=== PATIENT | male | born 1970 | race Hispanic/Latino ===

== ENCOUNTER 2016-07-22 18:35 | Emergency (ER) | payer OTHER ==
[~2016-07-22] VITALS: Ht 180.3 cm; Wt 119.3 kg
[2016-07-22] MEDS ORDERED: METFORMIN HCL1000 M1 PO (19:07)
[2016-07-22] MEDS ORDERED: ATORVASTATIN CA10 M1 PO (19:08)
[2016-07-22] MEDS ORDERED: LISINOPRIL2.5 M1 PO (19:08)
[2016-07-22] MEDS ORDERED: PIOGLITAZONE HC45 M1 PO (19:08)
[2016-07-22] MEDS ORDERED: GLIMEPIRIDE4 M1 PO (19:08)
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
[2016-07-22 19:37] LABS: ABSOLUTE BASOPHIL COUNT 0 /CUMM (0.0-0.2); ABSOLUTE EOSINOPHIL COUNT 0.3 /CUMM (0.0-0.7); ABSOLUTE GRANULOCYTE CT 4.3 /CUMM (1.4-6.5); ABSOLUTE LYMPH COUNT 1.5 /CUMM (1.2-3.4); ABSOLUTE MONOCYTE COUNT 0.3 /CUMM (0.10-0.60); BASOPHIL % 0.4 % (0.0-2.0); GRANULOCYTE % 68.1 % (42.2-75.2); HEMATOCRIT 39.4 % (42-52); MEAN CORPUSCULAR HGB 28.8 PG (27.0-31.0); MEAN CORPUSCULAR HGB CONC 33.8 G/DL (33.0-37.0); MEAN CORPUSCULAR VOLUME 85.2 FL (80.0-94.0); MEAN PLATELET VOLUME 8.6 FL (7.4-10.4); PLATELET COUNT 224 /CUMM (130-400); RBC DISTRIBUTION WIDTH 13.4 % (11.5-14.5); RED BLOOD CELL CT 4.63 /CUMM (4.70-6.10); WHITE BLOOD CELL COUNT 6.3 /CUMM (4.8-10.8)
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
[2016-07-22 20:37] VITALS: BP 153/82
[2016-07-22] MEDS ORDERED: DICLOFENAC SODI75 M2 PO (20:56)
[2016-07-22] MEDS ORDERED: CYCLOBENZAPRINE10 M1 PO (20:56)
[2016-07-22] MEDS ORDERED: PERCOCET 5-3251 EACH PO (20:56)
== END 2016-07-22 21:17 ==
LOC: ERH 18:35
PROVIDERS: Physician Assistant
DX: M62.830 Muscle spasm of back (principal); K57.90 Diverticulosis of intestine, part unspecified, without perforation or abscess without bleeding; R91.1 Solitary pulmonary nodule; E11.65 Type 2 diabetes mellitus with hyperglycemia
CPT/HCPCS: 74176; 81001; 93005; 93010; 96372; 96374; 96375; J1885; J3360

== ENCOUNTER 2016-11-28 08:17 | Emergency (ER) | payer OTHER ==
[~2016-11-28] VITALS: Ht 180.3 cm; Wt 117.9 kg
[~2016-11-28 08:17] MED LIST: ATORVASTATIN CA10 M1 PO; CYCLOBENZAPRINE10 M1 PO; DICLOFENAC SODI75 M2 PO; GLIMEPIRIDE4 M1 PO; LISINOPRIL2.5 M1 PO; METFORMIN HCL1000 M1 PO; PERCOCET 5-3251 EACH PO; PIOGLITAZONE HC45 M1 PO
--- NOTE | 2016-11-28 08:22 | ED INFLUENZA/URI COMPLAINT ---
History of Present Illness General Chief Complaint: Upper Respiratory Sx/Fever Stated Complaint: URI Source: patient, old records Exam Limitations: no limitations Vital Signs & Intake/Output Vital Signs & Intake/Output Vital Signs Date Time Temp Pulse Resp B/P B/P Pulse O2 O2 Flow FiO2 Mean Ox Delivery Rate 11/28 0845 98.0 88 20 130/80 98 Room Air 11/28 0915 99 11/28 0900 98 Room Air 11/28 0821 97.7 87 20 130/83 98 Room Air Allergies Coded Allergies: shellfish derived (Severe, TONGUE SWELLING AND HIVES 07/22/16) Penicillins (UNKNWON 07/22/16) Reconcile Medications Albuterol Sulfate (Proair Hfa) 90 MCG HFA.AER.AD 2 PUF INH Q4-6 PRN PRN bronchitis Atorvastatin Calcium 10 MG TABLET 1 TAB PO DAILY HPL (Reported) Azithromycin 250 MG TABLET 1 DP PO AD bronchitis 2 the first day followed by 1 for days 2-5 Codeine Phosphate/Guaifenesi (Guaifen-Codeine 100-10 MG/5 Ml) 10 MG-100 MG/5 ML LIQUID 10 ML PO Q6HR PRN COUGH Cyclobenzaprine HCl 10 MG TABLET 1 TAB PO TID PRN MUSCLE RELAXANT MAY CAUSE DROWSINESS Diclofenac Sodium 75 MG TABLET.DR 1 TAB PO BID PRN pain/inflammation Glimepiride 4 MG TABLET 1 TAB PO DAILY DM (Reported) Lisinopril 2.5 MG TABLET 1 TAB PO DAILY HTN (Reported) Metformin HCl 1,000 MG TABLET 1 TAB PO BID DM (Reported) Oxycodone HCl/Acetaminophen (Percocet 5-325 MG Tablet) 5 MG-325 MG TABLET 1 TAB PO Q6H PRN PAIN Pioglitazone HCl 45 MG TABLET 1 TAB PO DAILY DM (Reported) Triage Note: PT C/O 3 DAY HX PRODUCTIVE COUGH, FEVER, CHILLS AND BODYACHES. STATES TAKING NYQUIL AND DAYQUIL WITH NO RELIEF Triage Nurses Notes Reviewed? yes Onset: Gradual Duration: day(s): (5), constant Timing: recent history Severity: mild, moderate Severity Numbers: 6 Prior Episodes/Possible Cause: no prior episodes No Modifying Factors: none Associated Symptoms: cough, fever/chills, CONGESTION HPI: 46-year-old male with history of diabetes, hypertension nonsmoker presents to ER for evaluation complaining of 5 day history of a productive cough yellow sputum associated with congestion, fever chills as high as 102. Is been taking NyQuil, DayQuil without relief his last dose was 3 days ago. No sick contacts. He denies any.pain nausea vomiting diarrhea no urinary symptoms. Reports chest pain with coughing no pain at rest. No modifying factors or associated symptoms otherwise (BEAN COOPER) Past History Travel History Traveled to [place] past 21 day No Medical History Any Pertinent Medical History? see below for history Neurological: NONE EENT: NONE Cardiovascular: BORDERLINE HTN Respiratory: NONE Gastrointestinal: NONE Hepatic: NONE Renal: NONE Musculoskeletal: NONE Psychiatric: NONE Endocrine: diabetes Blood Disorders: NONE Cancer(s): NONE RN CAMP/Reproductive: NONE Surgical History Surgical History: non-contributory Psychosocial History What is your primary language Khmer Tobacco Use: Never used ETOH Use: occasional use Illicit Drug Use: denies illicit drug use Family History Hx Contributory? No (BEAN COOPER) Review of Systems Review of Systems Constitutional: Reports: see HPI. All Other Systems: Reviewed and Negative Comments Review of systems: See HPI, All other systems negative. Constitutional, chills fever, malaise HEENT: no sore throat congestion, no ear pain Cardiovascular: No chest pain , no palpitation , no orthopnea Skin: no rashes, no change in skin Respiratory: No dyspnea cough no sputum GI: No nausea no vomiting, no diarrhea, : No dysuria Muscle skeletal: No joint pain, no back pain, no neck pain, Neurologic: no headache Psych: No stress Heme/endocrine: No bruising Immunology: No lymphadenopathy (BEAN COOPER) Physical Exam Physical Exam General Appearance: well developed/nourished, no apparent distress, alert, awake Ears, Nose, Throat: normal ENT inspection, moist mucous membrane Comments: Well-developed well-nourished patient in no apparent distress. Head/Face: Atraumatic, no maxillary/frontal sinus tenderness, no facial swelling Eyes: PERRL, EOMI, no conjunctival injection. No nystagmus Ear:External auditory canal and Tympanic membranes clear, no erythema, no FB. Nose: atraumatic.Normal inspection: No bleeding, no septal hematoma Throat: Moist mucous membranes.Pharynx normal. No pharyngeal erythema/exudate seen. No stridor/drooling or assymetry. No swelling or edema. Neck: Supple, no lymphadenopathy, FROM Back: FROM Cardiovascular: Regular rate and rhythms no murmurs rubs Respiratory: Chest nontender.There were no bony deformities, no asymmetry. No respiratory distress. Patient speaking in full complete sentences. Wheezing bilaterally, no rhonchi no rales Extremities: full range of motion Neuro: awake, alert, and oriented to person, place and time. There were no obvious focal neurologic abnormalities. Skin: Warm & dry;No appreciable rash on exposed skin Psych: Mood affect normal, normal memory normal judgment. Core Measures Severe Sepsis Present: No Septic Shock Present: No (BEAN COOPER) Progress Differential Diagnosis: influenza, pneumonia, pharyngitis, sinusitis, bronchitis Plan of Care: Orders Procedure Date/time Status AEROSOL (GEN) 11/28 920 Complete DuoNeb ordered patient resting in no apparent distress afebrile at this time pt feeling imrpoved after breathing tx, wheezing has resolved I discussed with the patient at length all of their results. I had an extensive conversation regarding need for close follow up with their primary care physician this week as well as return precautions. I answered all of their questions, they feel comfortable with the plan and follow-up care. I discussed with the patient/family the medications that they will receive. I gave them signs and symptoms that could indicate an adverse reaction. I have advised them to limit their activities until they can see how they respond to the medication. (BEAN COOPER) Initial ED EKG: none (BEAN COOPER) Departure Departure Disposition: HOME OR SELF CARE Condition: Stable Clinical Impression Primary Impression: Bronchitis Referrals: YARED JEFFERSON,GRETCHEN Green (PCP/Family) Additional Instructions: proair inhaler, azithromycin as directed. robitussin with codeine for cough-use caution as this will make you drowsy. no driving or drinking alcohol while taking these were sent to your pharmacy Departure Forms: Customer Survey General Discharge Information Prescriptions: Current Visit Scripts Azithromycin 1 DP PO AD #6 TAB 2 the first day followed by 1 for days 2-5 Albuterol Sulfate (Proair Hfa) 2 PUF INH Q4-6 PRN PRN bronchitis #1 INHAL Codeine Phosphate/Guaifenesi (Guaifen-Codeine 100-10 MG/5 Ml) 10 ML PO Q6HR PRN COUGH #200 ML (BEAN COOPER) PA/CUT OFF MACHINE HELPER Co-Sign Statement Statement: ED Attending supervision documentation- [] I saw and evaluated the patient. I have also reviewed all the pertinent lab results and diagnostic results. I agree with the findings and the plan of care as documented in the PA's/CUT OFF MACHINE HELPER's documentation. [X] I have reviewed the ED Record and agree with the PA's/CUT OFF MACHINE HELPER's documentation. [] Additions or exceptions (if any) to the PAs/CUT OFF MACHINE HELPER's note and plan are summarized below: [] (RIK JEFFERSON,QASIM Green)
[2016-11-28] MEDS ORDERED: PROAIR HFA8.5 GM INH (09:34)
[2016-11-28] MEDS ORDERED: AZITHROMYCIN250 M1 PO (09:34)
[2016-11-28] MEDS ORDERED: GUAIFEN-CODEIN118 M1 PO ×2 (09:34→09:37)
[2016-11-28 09:45] VITALS: BP 130/80
== END 2016-11-28 09:58 ==
LOC: ERH 08:17
DX: J40 Bronchitis, not specified as acute or chronic (principal)
CPT/HCPCS: 1263